=== PATIENT | male | born 1940 | race Caucasian/White ===

== ENCOUNTER 2020-05-18 02:00 | Inpatient (IN) | payer MEDICARE ==
[2020-05-18] VITALS (8 sets, daily range): BP systolic 105–144; BP diastolic 51–73; BMI 29.6
[~2020-05-18] VITALS: Ht 175.3 cm; Wt 90.7 kg
[~2020-05-18 02:00] MED LIST: BAYER CHEWABLE81 MG PO; ELAVIL25 MG PO; FLOMAX0.4 MG PO; FLORAJEN3 CAPS460 MG PO; FLUTICASONE PRO16 GM NASAL; FOLATE0.4 MG PO; KLONOPIN1 MG PO; LEVOFLOXACIN500 MG PO; LISINOPRIL10 MG PO; MUCINEX600 MG PO; NAPROSYN500 MG PO; PACERONE200 MG PO; PHENERGAN6.25 MG/5 PO; PRAVASTATIN SOD10 MG PO; TESSALON PERLE100 MG PO
[2020-05-18 02:48] LABS: HEMATOCRIT 35.8 % (42.0-54.0); HEMOGLOBIN 11.4 g/dL (13.5-17.5); MCH 38.8 pg (26.0-34.0); MCHC 31.8 g/dL (31.0-37.0); MCV 121.8 fL (80.0-100.0); MEAN PLATELET VOLUME 11.2 fL (7.4-10.4); RBC 2.94 10x6/uL (4.20-6.10); RDW 19.5 % (11.5-14.5); WBC 15.5 10x3/uL (4.8-10.8)
[2020-05-18 02:49] LABS: PLATELET COUNT 54 10x3/uL (130-400)
[2020-05-18 02:51] LABS: APTT 29.6 SECONDS (22.8-39.4); INR 1.19 (0.85-1.17); PROTIME 15.1 SECONDS (11.6-15.0)
[2020-05-18 03:06] LABS: ALBUMIN 4.1 g/dL (3.4-5.0); ALKALINE PHOSPHATASE 150 U/L (30-120); ALT (SGPT) 24 U/L (10-68); BILIRUBIN - TOTAL 0.67 mg/dL (0.2-1.3); CALCIUM 9.2 mg/dL (8.5-10.1); CARBON DIOXIDE 21.5 mmol/L (21.0-32.0); CHLORIDE - SERUM 99 mmol/L (98-107); CKMB 1.5 U/L (0.0-3.6); CREATINE KINASE 202 UL (21-232); LIPASE 286 U/L (73-393); MAGNESIUM - SERUM 2.8 mg/dL (1.8-2.4); PROTEIN - SERUM 8.5 g/dL (6.4-8.2); SODIUM 130 mmol/L (136-145); TROPONIN-I < 0.017 ng/mL (0.000-0.060); UREA NITROGEN 59 mg/dL (7-18); eGFR NON AFRICAN AMERICAN 21 mL/min (90-120)
[2020-05-18 03:18] LABS: CALC OSMOLALITY 316 mosm/kg (275-300)
[2020-05-18 03:19] LABS: GLUCOSE 800 mg/dL (74-106); POTASSIUM - SERUM 6.8 mmol/L (3.5-5.1)
[2020-05-18 03:25] LABS: EOSINOPHILS 2 % (0-7); LYMPHOCYTES 28 % (15-50); MONOCYTES 1 % (2-11); NEUTROPHILS 62 % (40-80); PLATELET ESTIMATE DECREASED
--- NOTE | 2020-05-18 03:40 | NUR ---
PT DENIES HX OF DM1, DMII.
[2020-05-18 04:11] LABS: UDS - AMPHET NEGATIVE QUAL (NEGATIVE); UDS - BARB NEGATIVE QUAL (NEGATIVE); UDS - BENZO NEGATIVE QUAL (NEGATIVE); UDS - COCAINE NEGATIVE QUAL (NEGATIVE); UDS - OPIATE POSITIVE QUAL (NEGATIVE); UDS - PCP NEGATIVE QUAL (NEGATIVE); UDS - THC NEGATIVE QUAL (NEGATIVE)
[2020-05-18 04:17] LABS: GLUCOSE 1000 mg/dL (NEGATIVE); NITRITE NEGATIVE (NEGATIVE); SPECIFIC GRAVITY 1.015 (1.005-1.020)
[2020-05-18 04:18] LABS: BILIRUBIN NEGATIVE (NEGATIVE); KETONE NEGATIVE (NEGATIVE); UROBILINOGEN NORMAL (NORMAL)
[2020-05-18 04:19] LABS: BACTERIA NONE SEEN /hpf (NEGATIVE); EPITHELIAL CELLS 0-5 /hpf (0-5); RED CELLS - URINE 0-5 /hpf (0-5); WHITE CELLS - URINE NSEEN /hpf (NEGATIVE)
--- NOTE | 2020-05-18 05:07 | NUR ---
BACK TO CT AFTER USING URINAL. VOIDED 300 CC'S.
--- NOTE | 2020-05-18 06:37 | NUR ---
FSBS 549. DR. CHOW MADE AWARE.
[2020-05-18 07:37] LABS: ALBUMIN 3.7 g/dL (3.4-5.0); ANION GAP 15.2 mmol/L (8-16); BILIRUBIN - TOTAL 0.69 mg/dL (0.2-1.3); CALCIUM 8.5 mg/dL (8.5-10.1); CARBON DIOXIDE 21.2 mmol/L (21.0-32.0); CREATININE - SERUM 2.7 mg/dL (0.6-1.3); MAGNESIUM - SERUM 2.8 mg/dL (1.8-2.4); PROTEIN - SERUM 7.5 g/dL (6.4-8.2); TROPONIN-I 0.019 ng/mL (0.000-0.060)
[2020-05-18 07:41] LABS: POTASSIUM - SERUM 5.4 mmol/L (3.5-5.1)
--- NOTE | 2020-05-18 07:43 | NUR ---
CRITICAL LAB GLUCOSE REPORTED TO DR COHEN
[2020-05-18 07:58] LABS: BASOPHILS 0.3 % (0-2); EOSINOPHILS 0.3 % (0-7); HEMATOCRIT 30.8 % (42.0-54.0); IMMATURE GRANULOCYTES 8.1 % (0-5); LYMPHOCYTES 15.2 % (15-50); MCH 38.8 pg (26.0-34.0); MCHC 32.5 g/dL (31.0-37.0); MEAN PLATELET VOLUME 11.4 fL (7.4-10.4); MONOCYTES 13.7 % (2-11); NEUTROPHILS 62.4 % (40-80); RBC 2.58 10x6/uL (4.20-6.10); RDW 19.4 % (11.5-14.5); WBC 14.6 10x3/uL (4.8-10.8)
[2020-05-18 08:04] LABS: MCV 119.4 fL (80.0-100.0)
[2020-05-18 08:05] LABS: PLATELET COUNT 38 10x3/uL (130-400)
--- NOTE | 2020-05-18 08:13 | NUR ---
CRITICAL LAB PLATELETS REPORTED TO RICKY TRACEY
--- NOTE | 2020-05-18 08:17 | NUR ---
CALLED DR DAVALOS RE: CONTINUED ELEVATED BS (359 MG/DL) DR DAVALOS ORDERED ABG'S AND CALL HIM BACK WITH RESULTS
--- NOTE | 2020-05-18 09:02 | NUR ---
FSBS= 595 DR SUSANNAH CHANEY
--- NOTE | 2020-05-18 09:08 | NUR ---
DR DAVALOS CALLED BACK, INFORMED OF ABG RESULTS AND BS= 595 OK TO GIVE WATER. NO INSULIN AT THIS TIME.
[2020-05-18 10:15] LABS: PLATELET ESTIMATE DECREASED
[2020-05-18 10:16] LABS: ANISOCYTOSIS OCC; ROULEAUX OCC
--- NOTE | 2020-05-18 10:20 | NUR ---
PT UP TO BSC AND PULLED IV OUT.
--- NOTE | 2020-05-18 10:50 | NUR ---
BC'S X 2 DRAWN PER SHOVEL MECHANIC ABXS INITIATED
--- NOTE | 2020-05-18 12:06 | NUR ---
FSBS= 231 MG/DL
[2020-05-18 12:53] LABS: ANION GAP 15.3 mmol/L (8-16); CALCIUM 8.6 mg/dL (8.5-10.1); CARBON DIOXIDE 23.6 mmol/L (21.0-32.0); CREATININE - SERUM 2.4 mg/dL (0.6-1.3)
[2020-05-18 12:54] LABS: POTASSIUM - SERUM 3.9 mmol/L (3.5-5.1)
--- NOTE | 2020-05-18 13:30 | NUR ---
REPORT TO ALEXY NUNEZ
--- NOTE | 2020-05-18 13:40 | NUR ---
received from er per stretcher. patient awake, large liquid stool and urine in bed. patient ambulated to [facility]. liquid brown stool. right forearm infuisng with insuline gtt at 16 units an hour, vancomycin infusing at 250 ml hour. ns at 200 ml hour. patient does not know why he is here. states he knows how to use nurse call light. monitor atrial fib. skin warm and dry. denies pain. resting comfortably with eyes closed.
--- NOTE | 2020-05-18 14:14 | NUR ---
accucheck 97 insulin gtt turned off. patient answering questions appriopiately.
--- NOTE | 2020-05-18 15:09 | NUR ---
DR. RANDALL AND JESUS WITH CARDIOLOGY BOTH NOTIFIED OF CONSULTS. DR. WALKER CALLED NEW ORDERS RECIEVED
--- NOTE | 2020-05-18 15:30 | NUR ---
JAMES CATH INSERTED PER ORDERS OF DR. RANDALL TO HAVE AN ACCURATE OUTPUT IN PATIENT WITH EVANGELINA. PATIENT TOLERATED WELL. IN RIVET MAKER 16 FR. INSERTED WITHOUT DIFFICULTY. WITH IMMEDIATE RETURN OF CLEAR YELLOW URINE. SECURE TO LEFT THIGH. BAG BELOW BED.
[2020-05-18 15:39] LABS: ANION GAP 11.8 mmol/L (8-16); CALCIUM 8.3 mg/dL (8.5-10.1); CARBON DIOXIDE 24.4 mmol/L (21.0-32.0); CREATININE - SERUM 2.2 mg/dL (0.6-1.3); POTASSIUM - SERUM 4.2 mmol/L (3.5-5.1)
[2020-05-18 16:00] LABS: BILIRUBIN NEGATIVE (NEGATIVE); GLUCOSE 1000 mg/dL (NEGATIVE); KETONE NEGATIVE (NEGATIVE); NITRITE NEGATIVE (NEGATIVE); SPECIFIC GRAVITY 1.025 (1.005-1.020); UROBILINOGEN NORMAL (NORMAL)
[2020-05-18 16:01] LABS: BACTERIA MODERATE /hpf (NEGATIVE); RED CELLS - URINE 0-5 /hpf (0-5); WHITE CELLS - URINE OCC /hpf (NEGATIVE)
--- NOTE | 2020-05-18 17:01 | NUR ---
DINNER TRAY SERVED. FEEDING SELF. NO DISTRESS.
--- NOTE | 2020-05-18 17:50 | NUR ---
ATE 100% OF DINNER TRAY. TAKING PO FLUIDS WELL. NO DISTRESS. INCENTIVE SPIROMETRY INSTRUCTIONS GIVEN.
--- NOTE | 2020-05-18 19:06 | NUR ---
REPORT CALLED TO PRAFUL. PATIENT TO TRANSFER TO ROOM 2134. DAUGHTER KYLAH NOTIFIED.
--- NOTE | 2020-05-18 19:55 | NUR ---
PT ARRIVES VIA BED TO 34 PT IS CONFUSED ROOM SET UP AND CALL LIGHT GIVEN JAMES IS TO GRAVITY AND IV PATENT SR X2
[2020-05-18 20:06] LABS: ANION GAP 12.9 mmol/L (8-16); CALCIUM 7.7 mg/dL (8.5-10.1); CARBON DIOXIDE 22.2 mmol/L (21.0-32.0); CREATININE - SERUM 2.2 mg/dL (0.6-1.3); POTASSIUM - SERUM 4.1 mmol/L (3.5-5.1)
[2020-05-18 22:42] LABS: ANION GAP 13.7 mmol/L (8-16); CALCIUM 7.5 mg/dL (8.5-10.1); CARBON DIOXIDE 22.2 mmol/L (21.0-32.0); POTASSIUM - SERUM 3.9 mmol/L (3.5-5.1)
[2020-05-19] VITALS: BP 138/58
[2020-05-19 04:00] VITALS: BP 138/93
--- NOTE | 2020-05-19 07:30 | NUR ---
REPORT RECIEVED. PT SITTING SEMI FOLWERS IN BED. RR EVEN AND UNLABORED ON RA. HE HAS A R FA PIV THAT IS SL AND A L FA PIV INFUSING NS @ 100. HE HAS A JAMES DRAINING URINE. BED LOCKED AND IN LOWEST POSITION, CALL LIGHT WITHIN REACH. WILL CTM
[2020-05-19 07:46] LABS: BASOPHILS 0.2 % (0-2); EOSINOPHILS 1.3 % (0-7); HEMATOCRIT 27.4 % (42.0-54.0); HEMOGLOBIN 8.9 g/dL (13.5-17.5); IMMATURE GRANULOCYTES 6.1 % (0-5); LYMPHOCYTES 14.6 % (15-50); MCH 38.2 pg (26.0-34.0); MCHC 32.5 g/dL (31.0-37.0); MCV 117.6 fL (80.0-100.0); MEAN PLATELET VOLUME 11.8 fL (7.4-10.4); MONOCYTES 11.7 % (2-11); NEUTROPHILS 66.1 % (40-80); RBC 2.33 10x6/uL (4.20-6.10); RDW 19.5 % (11.5-14.5); WBC 11.7 10x3/uL (4.8-10.8)
[2020-05-19 07:51] LABS: PLATELET COUNT 37 10x3/uL (130-400)
[2020-05-19 08:04] LABS: ALBUMIN 3.1 g/dL (3.4-5.0); ANION GAP 11.1 mmol/L (8-16); BILIRUBIN - TOTAL 0.69 mg/dL (0.2-1.3); CALCIUM 7.6 mg/dL (8.5-10.1); CARBON DIOXIDE 23.6 mmol/L (21.0-32.0); CREATININE - SERUM 1.9 mg/dL (0.6-1.3); MAGNESIUM - SERUM 2.2 mg/dL (1.8-2.4); POTASSIUM - SERUM 3.7 mmol/L (3.5-5.1); PROTEIN - SERUM 6.4 g/dL (6.4-8.2)
[2020-05-19 09:41] VITALS: BP 127/82
[2020-05-19 12:33] LABS: % SATURATION 93 % (15-55); IRON 241 ug/dl (35-150); TOTAL IRON BIND CAPACITY 258 ug/dl (260-445)
[2020-05-19 12:45] LABS: UNSAT IRON BIND CAPACITY 17 ug/dl (150-375)
[2020-05-19 13:43] VITALS: BP 129/66
[2020-05-19 14:31] VITALS: Ht 175.3 cm; Wt 90.7 kg
--- NOTE | 2020-05-19 16:46 | NUR ---
PT WITH COMPLAINTS OF BLADDER DISCOMFORT AND NEED TO VOID. JAMES IN PLACE AND PATENT. BLADDER SCAN SHOWED MULTIPLE AMTS, HIGHEST BEING 231 ML. REPORTED TO RN IN CARE OF PT.
--- NOTE | 2020-05-19 17:03 | NUR ---
I have reviewed this patient and I concur with the Shift Assessment completed by the Licensed Practical Nurse today this shift.
--- NOTE | 2020-05-19 19:30 | NUR ---
PT IN BED, AAO X 1. RESP EVEN AND UNLABORED. NO DISTRESS NOTED. CL IN REACH, SR UP X 2.
[2020-05-19 20:00] VITALS: BP 116/46
[2020-05-20] VITALS: BP 139/69
[2020-05-20 04:00] VITALS: BP 116/64
[2020-05-20 06:38] LABS: BASOPHILS 0.2 % (0-2); EOSINOPHILS 2.5 % (0-7); HEMATOCRIT 25.8 % (42.0-54.0); HEMOGLOBIN 8.4 g/dL (13.5-17.5); IMMATURE GRANULOCYTES 6.6 % (0-5); LYMPHOCYTES 15.4 % (15-50); MCH 38.4 pg (26.0-34.0); MCHC 32.6 g/dL (31.0-37.0); MCV 117.8 fL (80.0-100.0); MONOCYTES 13.6 % (2-11); NEUTROPHILS 61.7 % (40-80); RBC 2.19 10x6/uL (4.20-6.10); RDW 19.3 % (11.5-14.5); WBC 9.3 10x3/uL (4.8-10.8)
[2020-05-20 06:39] LABS: PLATELET COUNT 33 10x3/uL (130-400)
[2020-05-20 06:53] LABS: ALBUMIN 2.7 g/dL (3.4-5.0); ANION GAP 9.2 mmol/L (8-16); BILIRUBIN - TOTAL 0.74 mg/dL (0.2-1.3); CALCIUM 7.1 mg/dL (8.5-10.1); CARBON DIOXIDE 24.6 mmol/L (21.0-32.0); CREATININE - SERUM 1.6 mg/dL (0.6-1.3); POTASSIUM - SERUM 3.8 mmol/L (3.5-5.1); PROTEIN - SERUM 5.9 g/dL (6.4-8.2)
--- NOTE | 2020-05-20 07:30 | NUR ---
REPORT RECIEVED. PT LYING ON BACK. RR EVEN AND UNLABORED ON RA. HE HAS A R FA PIV THAT IS SL AND A L FA PIV INFUSING NS @ 50. HE HAS A JAMES DRAINING CONCENTRATED DARK URINE. BED LOCKED AND IN LOWEST POSITION, CALL LIGHT WITHIN REACH. WILL CTM
[2020-05-20] MEDS ORDERED: AMIODARONE HCL200 MG PO (09:06)
[2020-05-20] MEDS ORDERED: OMNICEF300 MG PO (09:16)
[2020-05-20] MEDS ORDERED: GLUCOTROL XL 5 M5 MG PO (09:50)
[2020-05-20 11:22] VITALS: BP 139/65
--- NOTE | 2020-05-20 13:20 | NUR ---
RESP UL ON RA. RESTS IN BED WITH CALL LIGHT IN REACH. IV [id number] TO LEFT ARM. WILL CONT. PLAN OF CARE.
--- NOTE | 2020-05-20 15:38 | NUR ---
DC PAPERWORK GONE OVER AND SIGNED WITH PT AND HIS DAUGHTER. ALL QUESTIONS ANSWERED. DIABETIC TEACHING DONE WITH DAUGHTER. SHE WAS ABLE TO TEACH BACK WHAT WAS TAUGHT TO HER. X2 PIV REMOVED, CATH TIP FULLY INTACT. ALL VALUBLES REMOVED FROM ROOM. PT WHEELED TO FRONT ENTRANCE WITH DAUGHTER.
== END 2020-05-20 16:31 | disposition home or self-care (01) | DRG 637 ==
LOC: D.ER 02:00 → D.M2 06:46 → D.ICU 06:46 → D.M2 19:59
PROVIDERS: Family Medicine; ADMIT Family Medicine Adult Medicine; ATTEND Family Medicine Adult Medicine
DX: E11.65 Type 2 diabetes mellitus with hyperglycemia (principal); E11.00 Type 2 diabetes mellitus with hyperosmolarity without nonketotic hyperglycemic-hyperosmolar coma (NKHHC); N17.9 Acute kidney failure, unspecified; N39.0 Urinary tract infection, site not specified; E86.0 Dehydration; E87.5 Hyperkalemia; K40.90 Unilateral inguinal hernia, without obstruction or gangrene, not specified as recurrent; J44.9 Chronic obstructive pulmonary disease, unspecified; I48.91 Unspecified atrial fibrillation; I10 Essential (primary) hypertension; D50.9 Iron deficiency anemia, unspecified; D69.6 Thrombocytopenia, unspecified